=== PATIENT | male | born 1975 | race American Indian/Alaskan Native ===

== ENCOUNTER 2017-04-16 07:53 | Inpatient (IN) | payer MEDICAID ==
[2017-04-16 08:28] VITALS: BMI 25.0
--- NOTE | 2017-04-16 08:31 | ED PDOC ---
Arrival/HPI - General Time Seen by Provider: 04/16/17 08:25 Historian: Patient - History of Present Illness Narrative History of Present Illness (Text): 04/16/17 08:06 A 41 year old male whose past medical history includes, asthma, presents to the emergency department with pleuritic, retrosternal chest discomfort since this morning. The patient describes the pain as sharp and denies it radiating to the back. He denies fevers, chills, headache, dizziness, shortness of breath, dyspnea on exertion, abdominal pain, nausea, vomiting, diarrhea, or any other complaint. Time/Duration: Other (This morning) Symptom Onset: Sudden Symptom Course: Unchanged Activities at Onset: Rest, Light Context: Home Past Medical History - Provider Review Nursing Documentation Reviewed: Yes - Tetanus Immunization Tetanus Immunization: Unknown - Cardiac Hx Cardiac Disorders: No - Pulmonary Hx Respiratory Disorders: Yes Hx Asthma: Yes - Neurological Hx Neurological Disorder: No - HEENT Hx HEENT Disorder: No - Renal Hx Renal Disorder: No - Endocrine/Metabolic Hx Endocrine Disorders: No - Hematological/Oncological Hx Blood Disorders: No - Integumentary Hx Dermatological Disorder: No - Musculoskeletal/Rheumatological Hx Musculoskeletal Disorders: No - Gastrointestinal Hx Gastrointestinal Disorders: No Hx Bowel Surgery: No - Genitourinary/Gynecological Hx Genitourinary Disorders: No - Psychiatric Hx Psychophysiologic Disorder: No Hx Depression: No Hx Emotional Abuse: No Hx Physical Abuse: No Hx Substance Use: No - Suicidal Assessment Feels Threatened In Home Enviroment: No Family/Social History - Physician Review Nursing Documentation Reviewed: Yes Family/Social History: No Known Family HX Smoking Status: Never Smoked Hx Alcohol Use: No Hx Substance Use: No Hx Substance Use Treatment: No Allergies/Home Meds Allergies/Adverse Reactions: Allergies meperidine HCl [From Demerol] Allergy (Verified 04/16/17 08:28) RASH peanut Allergy (Verified 04/16/17 08:28) ANAPHYLAXIS Home Medications: Home Meds Medication Instructions Recorded Confirmed Albuterol HFA [Ventolin HFA 90 2 puff IH Q4H PRN 04/16/17 04/16/17 mcg/actuation (8 g)] Fluticasone/Salmeterol 250/50 1 puff IH DAILY 04/16/17 04/16/17 [Advair Diskus] Physical Exam - Physical Exam Narrative Physical Exam (Text): 04/16/17 08:15 - Review of Systems Constitutional: Normal. absent: Fatigue, Weight Change, Fevers Eyes: Normal ENT: Normal Respiratory: Normal absent: SOB, Cough, Sputum Cardiovascular: (+) Chest discomfort. absent: Palpitations, Syncope Gastrointestinal: Normal absent: Abdominal pain, Diarrhea, Nausea, Vomiting Genitourinary: Normal. absent: Dysuria, Frequency, Hematuria Musculoskeletal: Normal. absent: Arthralgias, Back Pain, Neck Pain Skin: Normal Neurological: Normal absent: Focal Weakness Endocrine: Normal Hemo/Lymphatic: Normal Psychiatric: Normal - Physical exam Patient appears age appropriate, speaking full sentences without difficulty - Systems Exam Head: Present: Atraumatic, Normocephalic Pupils: Present: PERRL Extraocular Muscles: Present: EOMI Conjunctiva: Present: Normal Mouth: Present: Moist Mucous Membranes Neck: Present: Normal Range of Motion. No: MIDLINE TENDERNESS, Paraspinal Tenderness Respiratory/Chest: Present: Clear to Auscultation, Good Air Exchange. No: Respiratory Distress, Accessory Muscle Use, Tachypnic Cardiovascular: Present: Regular Rate and Rhythm, Normal S1, S2, Peripheral Pulses Present. No: Murmurs Abdomen: Present: Normal Bowel Sounds, No: Tenderness, Peritoneal Signs, Rebound, Guarding, Distention Back: Present: Normal Inspection. No: Midline Tenderness, Paraspinal Tenderness Upper Extremity: Present: Normal Inspection. No: Cyanosis, Edema Lower Extremity: Present: Normal Inspection. No: Edema Neurological: Present: GCS=15, Speech Normal, cranial nerves II through XII fully intact with no cerebellar abnormality, neuro-sensory fully intact. No focal neurological deficits. Skin: Present: Warm, Dry, Normal Color. No: Rashes Lymphatic: Present: OX3, NI, NC Psychiatric: Present: Alert, Oriented x 3, Normal Insight, Normal Concentration Vital Signs Temp Pulse Resp BP Pulse Ox 04/16/17 10:02 90 18 126/73 97 04/16/17 08:26 99.5 F 83 18 122/67 98 Temperature: Afebrile Blood Pressure: Normal Pulse: Regular Respiratory Rate: Normal Appearance: Positive for: Well-Appearing, Non-Toxic, Comfortable Pain Distress: None Mental Status: Positive for: Alert and Oriented X 3 Medical Decision Making ED Course and Treatment: 04/16/17 08:21 Impression: A 41 year old male presents to the emergency department with pleuritic, retrosternal chest discomfort since this morning. On exam, no acute findings. Plan: -- EKG -- Angio Chest CT -- Chest X-ray -- Toradol -- Labs -- Reassess and disposition Progress Notes: 04/16/17 08:35 EKG: Ordered, reviewed, and independently interpreted the EKG. Rate : 84 BPM Rhythm : NSR Interpretation : No ST-segment elevations or depressions, no T-wave inversions, normal intervals. Chest X-ray Report Date : 04/16/2017 08:46:53 Dictator : Tania Read V. IMPRESSION: Small patchy ill-defined infiltrate left lateral mid lung zone. Follow-up to resolution recommended. Possible hiatal hernia. CT Chest with contrast (Pulmonary Angiogram) Report Date : 04/16/2017 09:57:40 Dictator : Myron Valdez MD IMPRESSION: Multiple solid lesions or mass like consolidation in both lungs. There is a cavitary lesion in the left lung base with a fluid level consistent with an abscess. No evidence of pulmonary embolus 04/16/17 10:20 BCx and abx ordered pt aware of plan to be admitted into the hospital for further w/u states he has no PMD at [facility] Dr. Robby orourke, awaiting callback 04/16/17 11:06 Dr. Bustamante asked to admit pt to hospitalist. dw Dr. Zapata, accepted admission - Lab Interpretations Lab Results: 04/16/17 08:25 04/16/17 08:25 Lab Results 04/16/17 08:25: Sodium 139, Potassium 4.1, Chloride 101, Carbon Dioxide 30, Anion Gap 12, BUN 17, Creatinine 1.0, Est GFR ( Amer) > 60, Est GFR (Non- Af Amer) > 60, Random Glucose 98, Calcium 9.1, Total Bilirubin 0.5, AST 72 H, ALT 103 H, Alkaline Phosphatase 69, Total Protein 7.6, Albumin 3.9, Globulin 3.8 , Albumin/Globulin Ratio 1.0 L 04/16/17 08:25: PT 11.4, INR 1.06, APTT 29.7, D-Dimer, Quantitative 0.54 H 04/16/17 08:25: WBC 8.5, RBC 4.05, Hgb 11.5 L, Hct 32.4 L, MCV 80.0, MCH 28.4, MCHC 35.5, RDW 14.2, Plt Count 324, MPV 9.2, Gran % 69.3 H, Lymph % (Auto) 21.2 L, [place] % (Auto) 8.6 H, Eos % (Auto) 0.7 L, Baso % (Auto) 0.2, Gran # 5.89, Lymph # 1.8, [place] # 0.7 H, Eos # 0.1, Baso # 0.02 I have reviewed the lab results: Yes - EKG Interpretation Interpreted by ED Physician: Yes Type: 12 lead EKG - Medication Orders Current Medication Orders: Discontinued Medications Azithromycin (Zithromax 500mg In Ns) 500 mg in 250 mls @ 166.667 mls/hr IV STAT STA PRN Reason: Protocol Stop: 04/16/17 10:45 Last Admin: 04/16/17 10:32 Dose: 166.667 mls/hr Clindamycin Phosphate 600 mg/ (Sodium Chloride) 54 mls @ 108 mls/hr IVPB STAT STA PRN Reason: Protocol Stop: 04/16/17 10:44 Ketorolac Tromethamine (Toradol) 30 mg IVP STAT STA Stop: 04/16/17 08:30 Last Admin: 04/16/17 08:36 Dose: 30 mg ED OBSERVATION Date of observation admission: 04/16/17 Time of observation admission: 08:27 - Observation admission statement Patient is being placed in observation because:: Repeat cardiac enzymes. - Goals of Observation Goals of observation are:: Reassess and Disposition. - Scribe Statement The provider has reviewed the documentation as recorded by the Tobin Maddox Provider Scribe Attestation: All medical record entries made by the Scriblorrie were at my direction and personally dictated by me. I have reviewed the chart and agree that the record accurately reflects my personal performance of the history, physical exam, medical decision making, and the department course for this patient. I have also personally directed, reviewed, and agree with the discharge instructions and disposition. Disposition/Present on Arrival - Present on Arrival Any Indicators Present on Arrival: No History of DVT/PE: No History of Uncontrolled Diabetes: No Urinary Catheter: No History Surgical Site Infection Following: None - Disposition Have Diagnosis and Disposition been Completed?: Yes Diagnosis: Lung abscess Disposition: HOSPITALIZED Disposition Time: 08:27 Patient Plan: Admission Condition: FAIR
[2017-04-16 08:39] LABS: BASO # 0.02 K/mm3 (0.0-2.0); BASO % 0.2 % (0.0-3.0); EOS # 0.1 (0.0-0.7); EOS % 0.7 % (1.5-5.0); GRAN # 5.89 (1.4-6.5); GRAN % 69.3 % (50.0-68.0); HEMATOCRIT 32.4 % (42.0-52.0); LYMPH # 1.8 (1.2-3.4); LYMPH % 21.2 % (22.0-35.0); MEAN CORPUSCULAR HEMOGLOBIN 28.4 pg (25.0-35.0); MEAN CORPUSCULAR HGB CONC 35.5 g/dl (31.0-37.0); MEAN PLATELET VOLUME 9.2 fl (7.0-11.0); MONO # 0.7 (0.1-0.6); MONO % 8.6 % (1.0-6.0); RED CELL DISTRIBUTION WIDTH 14.2 % (11.5-14.5); WHITE BLOOD COUNT 8.5 10^3/ul (4.5-11.0)
[2017-04-16 08:48] LABS: ALKALINE PHOSPHATASE 69 U/L (38-133); ALT/SGPT 103 U/L (7-56); AST/SGOT 72 U/L (15-59); BILIRUBIN,TOTAL 0.5 mg/dL (0.2-1.3); BLOOD UREA NITROGEN 17 mg/dL (7-21); CALCIUM 9.1 mg/dL (8.4-10.5); CARBON DIOXIDE 30 mmol/L (21-33); CHLORIDE 101 mmol/L (98-107); GFR AFRICAN-AMERICAN > 60; GLUCOSE,RANDOM 98 mg/dL (70-110); POTASSIUM 4.1 mmol/L (3.6-5.0); SODIUM 139 mmol/L (132-148); TOTAL PROTEIN 7.6 g/dL (5.8-8.3)
--- NOTE | 2017-04-16 08:48 | RAD ---
HISTORY: cough COMPARISON: No prior. FINDINGS: LUNGS: Left mid lung zone patchy infiltrate PLEURA: No significant pleural effusion identified, no pneumothorax apparent. CARDIOVASCULAR: Normal. OSSEOUS STRUCTURES: No significant abnormalities. VISUALIZED UPPER ABDOMEN: Normal. OTHER FINDINGS: Hiatal hernia possible IMPRESSION: Small patchy ill-defined infiltrate left lateral mid lung zone. Follow-up to resolution recommended Possible hiatal hernia
[2017-04-16 08:53] LABS: INR 1.06 (0.93-1.08); PARTIAL THROMBOPLASTIN TIME 29.7 Seconds (23.7-30.8)
[2017-04-16 08:59] LABS: D DIMER 0.54 mg/L FEU (0-0.50)
[2017-04-16] MEDS ORDERED: Azithromycin 500MG/NS 250ml 500 MG/250 ML BAG IV STA (09:16)
[2017-04-16] MEDS ORDERED: Iodixanol 320 MG/ML 100 ML BOTTLE IV ONE (09:31)
--- NOTE | 2017-04-16 09:59 | CT ---
PROCEDURE: CT Chest with contrast (Pulmonary Angiogram) HISTORY: r/o PE COMPARISON: None available. TECHNIQUE: Axial computed tomography images were obtained of the chest in the pulmonary arterial phase of enhancement. Coronal and sagittal reformatted images were created and reviewed. Intravenous contrast dose: 100 cc of Visipaque Radiation dose: Total exam DLP = 401 mGy-cm. This CT exam was performed using one or more of the following dose reduction techniques: Automated exposure control, adjustment of the mA and/or kV according to patient size, and/or use of iterative reconstruction technique. FINDINGS: PULMONARY ARTERIES: Unremarkable. No pulmonary embolism. AORTA: No acute findings. No thoracic aortic aneurysm. LUNGS: There is a cavitary lesion with a fluid level at the left lung base suspicious for a lung abscess. This measures 3.6 cm in diameter. There is a 2.7 cm mass or solid-appearing consolidation in the left upper lobe. There is a 3.2 cm area of consolidation in the superior segment of the left lower lobe. There is a 2.5 cm consolidation or mass in the right upper lobe. PLEURAL SPACES: Unremarkable. No effusion or pneuomothorax. HEART: Unremarkable. No cardiomegaly. No significant pericardial effusion. LYMPH NODES: No lymphadenopathy. BONES, CHEST WALL: Unremarkable. No fracture or destructive lesion OTHER FINDINGS: Unremarkable. IMPRESSION: Multiple solid lesions or masslike consolidation in both lungs. There is a cavitary lesion in the left lung base with a fluid level consistent with an abscess. No evidence of pulmonary embolus
--- NOTE | 2017-04-16 14:03 | CP.PCM.HP ---
History of Present Illness - History of Present Illness History of Present Illness: Patient is a 41 year old male with PMHx of asthma presents to the ED for chest pain. Reports that he was sleeping when he was awoken by 10/10 stabbing L sided chest pain. Pain is constant, stabbing in nature, with no alleviating factors. Denies radiation, worse with deep inspiration. Denies any prior similar episodes. Patient denies any fevers, chills, diaphoresis, cough, nausea, vomiting, palpitations, sob, abdominal pain, urinary symptoms, changes in bowel habit. Patient also denies any recent travel or sick contacts, recent weight loss, recent dental procedures. ED course: Azithromycin x 1 dose, Clindamycin x 1 dose, Toradol 30mg x 1 Allergies: Meperidine, peanuts, shellfish Medical Hx: Asthma (intubated once > 10 years ago) Medications: Advair, albuterol Surgical Hx: Appendectomy Social Hx: Former IV heroin user (quit 3 years ago), denies alcohol, tobacco use ; works for furniture moving [employer] Family Hx: Mother-Asthma Present on Admission - Present on Admission Any Indicators Present on Admission: No History of DVT/PE: No History of Uncontrolled Diabetes: No Urinary Catheter: No Decubitus Ulcer Present: No Review of Systems - Review of Systems All systems: reviewed and no additional remarkable complaints except - Constitutional Constitutional: absent: Chills, Fever, Night Sweats - EENT Eyes: absent: Blurred Vision, Change in Vision Ears: absent: Decreased Hearing Nose/Mouth/Throat: absent: Dental Pain, Mouth Lesions - Cardiovascular Cardiovascular: Chest Pain. absent: Diaphoresis, Dyspnea, Edema, Lightheadedness, Palpitations - Respiratory Respiratory: Pain on Inspiration. absent: Cough, Dyspnea, Wheezing - Gastrointestinal Gastrointestinal: absent: Abdominal Pain, Constipation, Diarrhea, Nausea, Vomiting - Genitourinary Genitourinary: absent: Difficulty Urinating, Dysuria, Hematuria, Urinary Incontinence - Musculoskeletal Musculoskeletal: absent: Abnormal Gait, Back Pain, Limited Range of Motion, Neck Pain, Numbness, Tingling - Neurological Neurological: absent: Dizziness, Focal Weakness, Headaches, Syncope, Tingling, Tremor, Weakness - Psychiatric Psychiatric: absent: Anxiety, Depression Past Patient History - Infectious Disease Hx of Infectious Diseases: None - Tetanus Immunizations Tetanus Immunization: Unknown - Past Social History Smoking Status: Never Smoked - CARDIAC Hx Cardiac Disorders: No - PULMONARY Hx Respiratory Disorders: Yes Hx Asthma: Yes - NEUROLOGICAL Hx Neurological Disorder: No - HEENT Hx HEENT Problems: No - RENAL Hx Chronic Kidney Disease: No - ENDOCRINE/METABOLIC Hx Endocrine Disorders: No - HEMATOLOGICAL/ONCOLOGICAL Hx Blood Disorders: No - INTEGUMENTARY Hx Dermatological Problems: No - MUSCULOSKELETAL/RHEUMATOLOGICAL Hx Musculoskeletal Disorders: No - GASTROINTESTINAL Hx Gastrointestinal Disorders: No Hx Bowel Surgery: No - GENITOURINARY/GYNECOLOGICAL Hx Genitourinary Disorders: No - PSYCHIATRIC Hx Psychophysiologic Disorder: No Hx Depression: No Hx Emotional Abuse: No Hx Physical Abuse: No Hx Substance Use: No - SURGICAL HISTORY Hx Surgeries: No Meds Allergies/Adverse Reactions: Allergies Allergy/AdvReac Type Severity Reaction Status Date / Time meperidine HCl [From Demerol] Allergy RASH Verified 04/16/17 13:15 peanut Allergy ANAPHYLAXIS Verified 04/16/17 13:15 shellfish derived Allergy ANAPHYLAXIS Verified 04/16/17 13:46 Physical Exam - Constitutional Appears: Well, No Acute Distress - Head Exam Head Exam: ATRAUMATIC, NORMAL INSPECTION - Eye Exam Eye Exam: EOMI, Normal appearance Pupil Exam: NORMAL ACCOMODATION - ENT Exam ENT Exam: Mucous Membranes Moist, Normal Oropharynx - Neck Exam Neck exam: Positive for: Full Rom, Normal Inspection. Negative for: Lymphadenopathy, Tenderness, Thyromegaly - Respiratory Exam Respiratory Exam: Decreased Breath Sounds, Rhonchi. absent: Accessory Muscle Use, Chest Wall Tenderness, Wheezes, Respiratory Distress Additional comments: Poor inspiratory effort 2/2 pain - Cardiovascular Exam Cardiovascular Exam: REGULAR RHYTHM, +S1, +S2. absent: Diastolic murmur, Systolic Murmur - GI/Abdominal Exam GI & Abdominal Exam: Normal Bowel Sounds, Soft, Tenderness. absent: Guarding, Rebound, Rigid - Rectal Exam Rectal Exam: Deferred - Extremities Exam Extremities exam: Positive for: normal inspection, pedal pulses present. Negative for: calf tenderness - Back Exam Back exam: NORMAL INSPECTION - Neurological Exam Neurological exam: Alert, CN II-XII Intact, Oriented x3 - Psychiatric Exam Psychiatric exam: Normal Affect, Normal Mood - Skin Skin Exam: Normal Color, Warm Results - Vital Signs Recent Vital Signs: Last Vital Signs Temp 99.2 F 04/16/17 12:14 Pulse 89 04/16/17 12:14 Resp 18 04/16/17 12:14 BP 141/69 04/16/17 12:14 Pulse Ox 98 04/16/17 12:14 - Labs Result Diagrams: 04/16/17 08:25 04/16/17 08:25 Assessment & Plan - Assessment and Plan (Free Text) Assessment: 41 yo male with PMHx of asthma presents with L sided pleuritic chest pain that started last night. D dimer was mildly elevated 0.54. CT chest showing multiple lesions or masslike consolidation in both lungs. There is a cavitary lesion in the L lung base with a fluid level consistent with abscess. Plan: 1. Lung abscess -Stable, afebrile -VSS, no leukocytosis -F/U am labs -HIV, Hep panel, Quantiferon TB test, UDS ordered -F/U blood cx, sputum cx -Received Clindamycin and Azithromycin in the ED -Continue antibiotics: Zosyn -Pulmonology consulted, f/u recommendations -ID consulted, f/u recommendations 2. Asthma -Will continue Advair -Monitor respiratory status 3. Transaminitis -AST/ALT 72/103 -F/U hepatitis panel -Avoid hepatotoxic agents 4. GI/DVT ppx -Protonix -SCDs
[2017-04-16] MEDS ORDERED: Albuterol HFA 90 mcg/actuation (8 g) IH PRN (14:27)
[2017-04-16] MEDS ORDERED: Albuterol 0.083% Inhal Sol (2.5 mg/3 mL) UD IH PRN (14:31)
[2017-04-16] MEDS ORDERED: Pneumococcal 23-Valent Vaccine IM ONE (14:37)
--- NOTE | 2017-04-16 15:38 | CP.PCM.CON ---
History of Present Illness - History of Present Illness History of Present Illness: Infectious Disease Consultation: April 16, 2017 41 yo male with chest pains on the left side stabbing in nature. The patient was woken up by the pain. Imaging studies done show multiple masses in the lung reeves with a left lung cavitary lesion with a fluid level consistent with an abscess. Patient under isolation and being worked up for TB. Cannot rule out malignancy given extent of disease. Samuel cultures and AFB to be sent. Suggest evaluation with Pulmonology and Cardiothoracic (if available). May need Oncology evaluation as well. 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 No fevers, chills, nausea, vomiting, diarrhea, headaches , dizziness, melena, hematuria, hematemesis, hematochezia, depression, anxiety Past Patient History - Infectious Disease Hx of Infectious Diseases: None - Tetanus Immunizations Tetanus Immunization: Unknown - Past Social History Smoking Status: Never Smoked - CARDIAC Hx Cardiac Disorders: No - PULMONARY Hx Respiratory Disorders: Yes Hx Asthma: Yes - NEUROLOGICAL Hx Neurological Disorder: No - HEENT Hx HEENT Problems: No - RENAL Hx Chronic Kidney Disease: No - ENDOCRINE/METABOLIC Hx Endocrine Disorders: No - HEMATOLOGICAL/ONCOLOGICAL Hx Blood Disorders: No - INTEGUMENTARY Hx Dermatological Problems: No - MUSCULOSKELETAL/RHEUMATOLOGICAL Hx Musculoskeletal Disorders: No - GASTROINTESTINAL Hx Gastrointestinal Disorders: No Hx Bowel Surgery: No - GENITOURINARY/GYNECOLOGICAL Hx Genitourinary Disorders: No - PSYCHIATRIC Hx Psychophysiologic Disorder: No Hx Depression: No Hx Emotional Abuse: No Hx Physical Abuse: No Hx Substance Use: No - SURGICAL HISTORY Hx Surgeries: No Meds Allergies/Adverse Reactions: Allergies Allergy/AdvReac Type Severity Reaction Status Date / Time meperidine HCl [From Demerol] Allergy RASH Verified 04/16/17 13:15 peanut Allergy ANAPHYLAXIS Verified 04/16/17 13:15 shellfish derived Allergy ANAPHYLAXIS Verified 04/16/17 13:46 - Medications Medications: Current Medications Albuterol Sulfate (Albuterol 0.083% Inhal Radha (2.5 Mg/3 Ml) Ud) 2.5 mg IH [id number] PRN PRN Reason: sob Arformoterol Tartrate (Brovana) 15 mcg IH [id number] [place] Budesonide (Pulmicort Respules) 0.5 mg IH [id number] S[place] Pantoprazole Sodium (Protonix Ec Tab) 40 mg PO 0600 SUL[place]NA Physical Exam - Constitutional Appears: Non-toxic, No Acute Distress, Chronically Ill - Head Exam Head Exam: ATRAUMATIC, NORMOCEPHALIC - Eye Exam Eye Exam: EOMI, PERRL Pupil Exam: NORMAL ACCOMODATION, PERRL - ENT Exam ENT Exam: Mucous Membranes Moist, Normal External Ear Exam, TM's Normal Bilaterally - Neck Exam Neck exam: Positive for: Full Rom, Normal Inspection - Respiratory Exam Respiratory Exam: Decreased Breath Sounds, Rhonchi Additional comments: poor inspiratory effort. - Cardiovascular Exam Cardiovascular Exam: REGULAR RHYTHM, RRR, +S1, +S2 - GI/Abdominal Exam GI & Abdominal Exam: Normal Bowel Sounds, Soft. absent: Distended, Tenderness - Extremities Exam Extremities exam: Positive for: full ROM, normal inspection - Neurological Exam Neurological exam: Alert, CN II-XII Intact, Oriented x3 - Psychiatric Exam Psychiatric exam: Normal Affect, Normal Mood - Skin Skin Exam: Intact, Normal Color Results - Vital Signs Recent Vital Signs: Last Vital Signs Temp 99.2 F 04/16/17 13:55 Pulse 89 04/16/17 13:55 Resp 18 04/16/17 13:55 BP 141/69 04/16/17 13:55 Pulse Ox 98 04/16/17 12:14 - Labs Result Diagrams: 04/16/17 08:25 04/16/17 08:25 Assessment & Plan - Assessment and Plan (Free Text) Assessment: 41 yo male with extensive lung pathology with left lower lung cavitary lesion with fluid levels highly suggestive of a lung abscess. Would obtain IR evaluation in addition to Pulmonology evalutation. Would perform cancer workup. Samuel cultures. Start on IV antibiotics of Zosyn for now. Try to drain abscess and send samples for evaluation and cultures. Supportive care. Thank you for allowing me to participate in the care of the patient, we will follow with you.
--- NOTE | 2017-04-16 17:09 | CARD ---
APPROVED REPORT EKG Measurement Heart [id number] <Conclusion> Normal sinus rhythm Normal ECG
--- NOTE | 2017-04-16 17:17 | CP.PCM.CON ---
History of Present Illness - History of Present Illness History of Present Illness: 41 y/o M who presented to the hospital with pleuritic chest pain x 1 day. He does not complain of fevers, chills or night sweats. He mentions 10 lb weight loss in the past month . No smoking or Alcohol but does admit to IV heroin use lately and last use 2 days prior. Currently seen asymptomatic sitting in the chair. Review of Systems - Constitutional Constitutional: Fatigue, Malaise, Weight Loss - EENT Eyes: absent: As Per HPI, Blind Spots, Blurred Vision, Change in Vision, Decreased Night Vision, Diplopia, Discharge, Dry Eye, Exophthalmos, Floaters, Irritation, Itchy Eyes, Loss of Peripheral Vision, Pain, Photophobia, Requires Corrective Lenses, Sees Flashes, Spots in Vision, Tunnel Vision, Other Visual Disturbances, Loss of Vision, Other Ears: absent: As Per HPI, Decreased Hearing, Ear Discharge, Ear Pain, Tinnitus, Abnormal Hearing, Disequilibrium, Dizziness, Other Nose/Mouth/Throat: absent: As Per HPI, Epistaxis, Nasal Congestion, Nasal Discharge, Nasal Obstruction, Nasal Trauma, Nose Pain, Post Nasal Drip, Sinus Pain, Sinus Pressure, Bleeding Gums, Change in Voice, Dental Pain, Dry Mouth, Dysphagia, Halitosis, Hoarsness, Lip Swelling, Mouth Lesions, Mouth Pain, Odynophagia, Sore Throat, Throat Swelling, Tongue Swelling, Facial Pain, Neck Pain, Neck Mass, Other - Cardiovascular Cardiovascular: absent: As Per HPI, Acrocyanosis, Chest Pain, Chest Pain at Rest , Chest Pain with Activity, Claudication, Diaphoresis, Dyspnea, Dyspnea on Exertion, Edema, Irregular Heart Rhythm, Pain Radiating to Arm/Neck/Jaw, Leg Edema, Leg Ulcers, Lightheadedness, Orthopnea, Palpitations, Paroxysmal Nocturnal Dyspnea, Pedal Edema, Radiating Pain, Rapid Heart Rate, Slow Heart Rate, Syncope, Other - Respiratory Respiratory: Pain on Inspiration - Gastrointestinal Gastrointestinal: absent: As Per HPI, Abdominal Pain, Belching, Bloating, Change in Bowel Habits, Change in Stool Character, Coffee Ground Emesis, Constipation, Cramping, Diarrhea, Dyspepsia, Dysphagia, Early Satiety, Excessive Flatus, Fecal Incontinence, Heartburn, Hematemesis, Hematochezia, Loose Stools, Melena, Nausea, Odynophagia, Temesmus, Vomiting, Other - Genitourinary Genitourinary: absent: As Per HPI, Change in Urinary Stream, Difficulty Urinating, Dysuria, Flank Pain, Hematuria, Pyuria, Nocturia, Urinary Incontinence, Urinary Frequency, Urinary Hesitance, Urinary Urgency, Voiding Freq/Small Amts, Freq UTI, Hx Renal/Bladder Calculi, Hx /Renal Surgery, Bladder Distension, Other - Reproductive: Male Reproductive:Male: As Per HPI, Prepubesant, Dyspareunia, Genital Lesions, Genital Pruritis, Pelvic Pain, Sexual Dysfunction, Penile Discharge, Genital Odor, Impotence, On ED Medications, Penile Implant, Other - Musculoskeletal Musculoskeletal: absent: As Per HPI, Abnormal Gait, Arthralgias, Atrophy, Back Pain, Deformity, Joint Swelling, Limited Range of Motion, Loss of Height, Muscle Cramps, Muscle Weakness, Myalgias, Neck Pain, Numbness, Radiating Pain into Limb, Stiffness, Tingling, Other - Integumentary Integumentary: absent: As Per HPI, Acne, Alopecia, Bleeding Lesions, Change in Hair, Change in Nails, Change in Pigmentation, Changing Lesions, Dry Skin, Erythema, Furuncle, Hirsutism, Lesions, New Lesions, Non-Healing Lesions, Photosensitivity, Pruritus, Rash, Skin Pain, Skin Ulcer, Sores, Striae, Swelling , Unusual Bruising, Wounds, Jaundice, Other Past Patient History - Infectious Disease Hx of Infectious Diseases: None - Tetanus Immunizations Tetanus Immunization: Unknown - Past Social History Smoking Status: Never Smoked Drugs: Other (iv heroin use) - CARDIAC Hx Cardiac Disorders: No - PULMONARY Hx Respiratory Disorders: Yes Hx Asthma: Yes - NEUROLOGICAL Hx Neurological Disorder: No - HEENT Hx HEENT Problems: No - RENAL Hx Chronic Kidney Disease: No - ENDOCRINE/METABOLIC Hx Endocrine Disorders: No - HEMATOLOGICAL/ONCOLOGICAL Hx Blood Disorders: No - INTEGUMENTARY Hx Dermatological Problems: No - MUSCULOSKELETAL/RHEUMATOLOGICAL Hx Musculoskeletal Disorders: No - GASTROINTESTINAL Hx Gastrointestinal Disorders: No Hx Bowel Surgery: No - GENITOURINARY/GYNECOLOGICAL Hx Genitourinary Disorders: No - PSYCHIATRIC Hx Psychophysiologic Disorder: No Hx Depression: No Hx Emotional Abuse: No Hx Physical Abuse: No Hx Substance Use: No - SURGICAL HISTORY Hx Surgeries: No Meds Allergies/Adverse Reactions: Allergies Allergy/AdvReac Type Severity Reaction Status Date / Time meperidine HCl [From Demerol] Allergy RASH Verified 04/16/17 13:15 peanut Allergy ANAPHYLAXIS Verified 04/16/17 13:15 shellfish derived Allergy ANAPHYLAXIS Verified 04/16/17 13:46 - Medications Medications: Current Medications Albuterol Sulfate (Albuterol 0.083% Inhal Radha (2.5 Mg/3 Ml) Ud) 2.5 mg IH [id number] PRN PRN Reason: sob Arformoterol Tartrate (Brovana) 15 mcg IH [id number] [facility] Budesonide (Pulmicort Respules) 0.5 mg IH [id number] [facility] Piperacillin Sod/Tazobactam Sod (Zosyn 4.5 Gm In Ns 100ml) 4.5 gm in 100 mls @ 200 mls/hr IVPB Q6 [facility] PRN Reason: Protocol Vancomycin HCl (Vancomycin 1gm) 1 gm in 250 mls @ 167 mls/hr IVPB DAILY SULTANA PRN Reason: Protocol Pantoprazole Sodium (Protonix Ec Tab) 40 mg PO 0600 [facility] Physical Exam - Head Exam Head Exam: ATRAUMATIC, NORMAL INSPECTION - Eye Exam Eye Exam: EOMI, Normal appearance Pupil Exam: NORMAL ACCOMODATION, PERRL - ENT Exam ENT Exam: Mucous Membranes Moist - Neck Exam Neck exam: Positive for: Normal Inspection - Respiratory Exam Respiratory Exam: Clear to Auscultation Bilateral, NORMAL BREATHING PATTERN - Cardiovascular Exam Cardiovascular Exam: REGULAR RHYTHM - GI/Abdominal Exam GI & Abdominal Exam: Normal Bowel Sounds - Exam Exam: NORMAL INSPECTION - Extremities Exam Extremities exam: Positive for: normal inspection - Back Exam Back exam: NORMAL INSPECTION - Neurological Exam Neurological exam: Normal Gait, Oriented x3 - Psychiatric Exam Psychiatric exam: Normal Affect, Normal Mood Results - Vital Signs Recent Vital Signs: Last Vital Signs Temp 99.2 F 04/16/17 16:00 Pulse 80 04/16/17 16:00 Resp 18 04/16/17 16:00 BP 124/74 04/16/17 16:00 Pulse Ox 97 04/16/17 16:00 - Labs Result Diagrams: 04/16/17 08:25 04/16/17 08:25 Labs: Laboratory Results - last 24 hr 04/16/17 15:30 Troponin I < 0.01 Assessment & Plan - Assessment and Plan (Free Text) Assessment: 41 y/o M with a history of Mild intermittent Asthma on Advair daily and PRn albuterol who presented with Pleuritic chest pain. CXR and Chest Ct images were reviewed by me which showed multiple nodular infiltrated in the periphery with LLL lung abscess. The finding of the nodular lung infiltrates suggest infectious causes and with the patient's history can suggest septic emboli. Would need TTE and LENA urgently. Blood cx, Sputum cx and may need bronchoscopy in the next 24-36 hrs if new fevers or worsening situation. With the findings of the LLL lung abscess, drainage would not be reccomended in guidelines and would be a risk for further sepsis and dissemination. Would continue with IV abx Zosyn and Vancomycin for 2 weeks and would then have a repeat CT chest to evaluate the infiltrates and if they remain would decide if there is a need for tissue sample via biopsy by IR. HIV, Hepatitis panel sent to r/o immunocompromised state . DVT P We will follow along
[2017-04-16] MEDS: Piperacill/Tazo 4.5gm in NS 4.5 GM/100 ML BAG IVPB SCH (17:36)
[2017-04-16] MEDS: Vancomycin 1gm in NS 250ml 1 GM/250 ML BAG IVPB SCH (18:24)
[2017-04-16] MEDS: Arformoterol 15 mcg/2 ml Inh Sol IH SCH (20:01)
[2017-04-16] MEDS: Budesonide 0.5 mg/2 ml Inhal Susp UD IH SCH (20:01)
[2017-04-17] MEDS: Piperacill/Tazo 4.5gm in NS 4.5 GM/100 ML BAG IVPB SCH ×4 (00:17→18:13)
[2017-04-17] MEDS ORDERED: Pantoprazole 40 mg EC Tab PO SCH (06:00)
[2017-04-17] MEDS: Arformoterol 15 mcg/2 ml Inh Sol IH SCH ×2 (07:18→20:21)
[2017-04-17] MEDS: Budesonide 0.5 mg/2 ml Inhal Susp UD IH SCH ×2 (07:18→20:21)
[2017-04-17 07:38] LABS: BASO # 0.02 K/mm3 (0.0-2.0); BASO % 0.2 % (0.0-3.0); EOS # 0.1 (0.0-0.7); GRAN # 5.6 (1.4-6.5); GRAN % 64.3 % (50.0-68.0); HEMATOCRIT 33.1 % (42.0-52.0); LYMPH % 22.7 % (22.0-35.0); MEAN CELL VOLUME 79.4 fl (80.0-105.0); MEAN CORPUSCULAR HEMOGLOBIN 27.6 pg (25.0-35.0); MEAN CORPUSCULAR HGB CONC 34.7 g/dl (31.0-37.0); MEAN PLATELET VOLUME 9.8 fl (7.0-11.0); MONO % 11.8 % (1.0-6.0); RED CELL DISTRIBUTION WIDTH 14.2 % (11.5-14.5); WHITE BLOOD COUNT 8.7 10^3/ul (4.5-11.0)
[2017-04-17 07:47] LABS: ALKALINE PHOSPHATASE 68 U/L (38-133); ALT/SGPT 111 U/L (7-56); AST/SGOT 85 U/L (15-59); BILIRUBIN,TOTAL 0.5 mg/dL (0.2-1.3); BLOOD UREA NITROGEN 15 mg/dL (7-21); CALCIUM 9.2 mg/dL (8.4-10.5); CARBON DIOXIDE 29 mmol/L (21-33); CHLORIDE 102 mmol/L (98-107); GFR AFRICAN-AMERICAN > 60; GLUCOSE,RANDOM 100 mg/dL (70-110); MAGNESIUM 1.9 mg/dL (1.7-2.2); PHOSPHOROUS 3.9 mg/dL (2.5-4.5); POTASSIUM 4.2 mmol/L (3.6-5.0); SODIUM 140 mmol/L (132-148); TOTAL PROTEIN 7.5 g/dL (5.8-8.3)
[2017-04-17 08:02] LABS: TROPONIN I < 0.01 ng/mL
[2017-04-17] MEDS: Vancomycin 1gm in NS 250ml 1 GM/250 ML BAG IVPB SCH (09:39)
[2017-04-17] MEDS ORDERED: Fluticasone-Salmeterol 250-50mcg Diskus IH SCH (10:00)
--- NOTE | 2017-04-17 14:15 | CP.PCM.PN ---
<Vicky Ashford - Last Filed: 04/17/17 14:21> Subjective - Date & Time of Evaluation Date of Evaluation: 04/17/17 Time of Evaluation: 07:15 - Subjective Subjective: Vicky Ashford DO, PGY-1, Internal Medicine, Hospitalist Service Patient seen and examined at bedside. Per nursing, no acute events overnight. Patient is doing well, offers no complaints at this time. Pain improving. Ambulating and tolerating diet. Denies headache, dizziness, cough, palpitations , shortness of breath, abdominal pain, urinary symptoms, changes in bowel habits. Objective - Vital Signs/Intake and Output Vital Signs (last 24 hours): Temp Pulse Resp BP Pulse Ox 98.1 F 71 18 118/45 L 97 04/17/17 07:00 04/17/17 07:00 04/17/17 07:00 04/17/17 07:00 04/17/17 07:00 Intake and Output: 04/17/17 04/17/17 06:59 18:59 Intake Total 720 Balance 720 - Medications Medications: Current Medications Albuterol Sulfate (Albuterol 0.083% Inhal Radha (2.5 Mg/3 Ml) Ud) 2.5 mg IH [id number] PRN PRN Reason: sob Arformoterol Tartrate (Brovana) 15 mcg IH [id number] [facility] Last Admin: 04/17/17 07:18 Dose: 15 mcg Budesonide (Pulmicort Respules) 0.5 mg IH [id number] [facility] Last Admin: 04/17/17 07:18 Dose: 0.5 mg Piperacillin Sod/Tazobactam Sod (Zosyn 4.5 Gm In Ns 100ml) 4.5 gm in 100 mls @ 200 mls/hr IVPB Q6 [facility] PRN Reason: Protocol Last Admin: 04/17/17 12:46 Dose: 200 mls/hr Vancomycin HCl (Vancomycin 1gm) 1 gm in 250 mls @ 167 mls/hr IVPB DAILY [facility] PRN Reason: Protocol Last Admin: 04/17/17 09:39 Dose: 167 mls/hr Pantoprazole Sodium (Protonix Ec Tab) 40 mg PO 0600 [facility] Last Admin: 04/17/17 09:39 Dose: 40 mg - Labs Labs: 04/17/17 07:00 04/17/17 07:00 PT 11.4 Seconds (9.9-11.8) 04/16/17 08:25 INR 1.06 (0.93-1.08) 04/16/17 08:25 APTT 29.7 Seconds (23.7-30.8) 04/16/17 08:25 - Constitutional Appears: Well, No Acute Distress - Head Exam Head Exam: ATRAUMATIC, NORMAL INSPECTION - Eye Exam Eye Exam: EOMI, Normal appearance Pupil Exam: NORMAL ACCOMODATION - ENT Exam ENT Exam: Mucous Membranes Moist - Neck Exam Neck Exam: Full ROM - Respiratory Exam Respiratory Exam: Decreased Breath Sounds, Clear to Ausculation Bilateral, NORMAL BREATHING PATTERN. absent: Rales, Rhonchi, Wheezes - Cardiovascular Exam Cardiovascular Exam: REGULAR RHYTHM, +S1, +S2 - GI/Abdominal Exam GI & Abdominal Exam: Soft, Normal Bowel Sounds. absent: Guarding, Rigid, Tenderness - Extremities Exam Extremities Exam: Full ROM, Normal Inspection - Back Exam Back Exam: NORMAL INSPECTION - Neurological Exam Neurological Exam: Alert, Awake, Normal Gait, Oriented x3 - Psychiatric Exam Psychiatric exam: Normal Affect, Normal Mood - Skin Skin Exam: Dry, Normal Color, Warm Assessment and Plan - Assessment and Plan (Free Text) Assessment: 41 yo male with PMHx of asthma presents with L sided pleuritic chest pain that started last night. D dimer was mildly elevated 0.54. CT chest showing multiple lesions or masslike consolidation in both lungs. There is a cavitary lesion in the L lung base with a fluid level consistent with abscess. Plan: 1. Lung abscess -Stable, afebrile -VSS, no leukocytosis -F/U am labs -Troponins negative x 3 -HIV, Hepatitis panel negative -UDS + opiates -Patient on airborne precautions as TB is on differential -F/U quantiferon gold -F/U blood cx, sputum cx -Received Clindamycin and Azithromycin in the ED -Continue antibiotics: Zosyn and Vancomycin (day 2) -Pulmonology consulted, f/u recommendations -ID consulted, f/u recommendations 2. Asthma -Will continue pulmicort and brovana -Albuterol prn -Monitor respiratory status 3. Transaminitis -AST/ALT 85/111 -Hepatitis panel negative -Avoid hepatotoxic agents -Continue to monitor 4. GI/DVT ppx -Protonix -SCDs <Joel Mabry - Last Filed: 04/18/17 15:38> Objective - Vital Signs/Intake and Output Vital Signs (last 24 hours): Temp Pulse Resp BP Pulse Ox 97.8 F 71 22 128/68 99 04/18/17 08:42 04/18/17 08:42 04/18/17 08:42 04/17/17 23:00 04/18/17 08:42 Intake and Output: 04/18/17 04/18/17 06:59 18:59 Intake Total 720 Balance 720 - Labs Labs: 04/18/17 06:40 04/18/17 06:40 PT 11.4 Seconds (9.9-11.8) 04/16/17 08:25 INR 1.06 (0.93-1.08) 04/16/17 08:25 APTT 29.7 Seconds (23.7-30.8) 04/16/17 08:25 Attending/Attestation - Attestation I have personally seen and examined this patient.: Yes I have fully participated in the care of the patient.: Yes I have reviewed all pertinent clinical information, including history, physical exam and plan: Yes Notes (Text): I have seen and examined the patient at bedside. Agree with the above note with the following additions/ exceptions: Briefly this is 41 year old male with history of IV drug abuse, asthma who presented with left sided pleuritic chest pain and found to have lung abscess. Patient denies any complaints including cough, chest pain, hemoptysis, phlegm production or any other complaints. Patient is not immunocompromised. HIV and hep is negative. He is on airborne precautions. TB quantiferon pending. Continue zosyn and vanco. Continue pulmicort and brovana for asthma. Patient has transaminitis. Hep panel is negative. Recommend Hepatic ultrasound as an outpatient. Upon discharge patient will follow up with Dr Lashaun Xavier. Dr Joel Mabry.
--- NOTE | 2017-04-17 19:31 | CP.PCM.PN ---
Subjective - Date & Time of Evaluation Date of Evaluation: 04/17/17 Time of Evaluation: 17:45 - Subjective Subjective: Infectious Disease Follow Up: April 17, 2017 41 yo male with chest pains on the left side stabbing in nature. The patient was woken up by the pain. Imaging studies done show multiple masses in the lung reeves with a left lung cavitary lesion with a fluid level consistent with an abscess. Patient under isolation and being worked up for TB. Cannot rule out malignancy given extent of disease. Samuel cultures and AFB to be sent. Evaluated by Pulmonology. Blood cultures to date have been negative. Clinically patient is not in much distress. Objective - Vital Signs/Intake and Output Vital Signs (last 24 hours): Temp Pulse Resp BP Pulse Ox 98 F 66 20 125/86 99 04/17/17 16:00 04/17/17 16:00 04/17/17 16:00 04/17/17 16:00 04/17/17 16:00 Intake and Output: 04/17/17 04/18/17 18:59 06:59 Intake Total 480 Balance 480 - Medications Medications: Current Medications Albuterol Sulfate (Albuterol 0.083% Inhal Radha (2.5 Mg/3 Ml) Ud) 2.5 mg IH [id number] PRN PRN Reason: sob Arformoterol Tartrate (Brovana) 15 mcg IH [id number] [facility] Last Admin: 04/17/17 07:18 Dose: 15 mcg Budesonide (Pulmicort Respules) 0.5 mg IH [id number] [facility] Last Admin: 04/17/17 07:18 Dose: 0.5 mg Piperacillin Sod/Tazobactam Sod (Zosyn 4.5 Gm In Ns 100ml) 4.5 gm in 100 mls @ 200 mls/hr IVPB Q6 [facility] PRN Reason: Protocol Last Admin: 04/17/17 18:13 Dose: 200 mls/hr Vancomycin HCl (Vancomycin 1gm) 1 gm in 250 mls @ 167 mls/hr IVPB DAILY [facility] PRN Reason: Protocol Last Admin: 04/17/17 09:39 Dose: 167 mls/hr Pantoprazole Sodium (Protonix Ec Tab) 40 mg PO 0600 [facility] Last Admin: 04/17/17 09:39 Dose: 40 mg - Labs Labs: 04/17/17 07:00 04/17/17 07:00 PT 11.4 Seconds (9.9-11.8) 04/16/17 08:25 INR 1.06 (0.93-1.08) 04/16/17 08:25 APTT 29.7 Seconds (23.7-30.8) 04/16/17 08:25 - Constitutional Appears: Non-toxic, No Acute Distress, Chronically Ill - Head Exam Head Exam: ATRAUMATIC, NORMOCEPHALIC - Eye Exam Eye Exam: EOMI, PERRL Pupil Exam: NORMAL ACCOMODATION, PERRL - ENT Exam ENT Exam: Mucous Membranes Moist, Normal External Ear Exam, TM's Normal Bilaterally - Neck Exam Neck Exam: Full ROM, Normal Inspection - Respiratory Exam Respiratory Exam: Chest Wall Tenderness, Clear to Ausculation Bilateral, Respiratory Distress. absent: Rales, Rhonchi, Wheezes - Cardiovascular Exam Cardiovascular Exam: REGULAR RHYTHM, RRR, +S1, +S2 - GI/Abdominal Exam GI & Abdominal Exam: Soft, Normal Bowel Sounds. absent: Distended, Tenderness - Extremities Exam Extremities Exam: Full ROM, Normal Inspection - Back Exam Back Exam: NORMAL INSPECTION - Neurological Exam Neurological Exam: Alert, Awake, CN II-XII Intact, Oriented x3 - Psychiatric Exam Psychiatric exam: Normal Affect, Normal Mood - Skin Skin Exam: Intact, Normal Color Assessment and Plan - Assessment and Plan (Free Text) Assessment: 41 yo male with extensive lung pathology with left lower lung cavitary lesion with fluid levels highly suggestive of a lung abscess. Would obtain IR evaluation in addition to Pulmonology evalutation. Samuel cultures. Start on IV antibiotics of Zosyn for now. Most likely abscess and septic emboli. Supportive care. Cultures negative to date. Thank you for allowing me to participate in the care of the patient, we will follow with you.
--- NOTE | 2017-04-17 19:46 | CARD ---
APPROVED REPORT EXAM: Two-dimensional and M-mode echocardiogram with Doppler and color Doppler. INDICATION Infection:Rule out subacute bacterial endocarditis Thrombus 2D DIMENSIONS Left Atrium (2D)4.0 (1.6-4.0cm)IVSd1.0 (0.7-1.1cm) LVDd4.9 (3.9-5.9cm)PWd1.1 (0.7-1.1cm) LVDs3.1 (2.5-4.0cm)FS (%) 36.9 % LVEF (%)66.7 (>50%) M-Mode DIMENSIONS Aortic Root2.70 (2.2-3.7cm)Aortic Cusp Exc.1.90 (1.5-2.0cm) Aortic Valve AoV Peak Qzjerwtv582.0cm/Samara Peak GR.9mmHg Mitral Valve MV E Kxklajga54.3cm/sMV A [place]68.3cm/sE/A ratio1.2 TDI E/Lateral E'0.0E/Medial E'0.0 Tricuspid Valve TR Peak [id number]/sRAP [id number] Peak Gr.25mmHg [id number] LEFT VENTRICLE The left ventricle is normal size. There is normal left ventricular wall thickness. The left ventricular function is normal. The left ventricular ejection fraction is within the normal range. There is normal LV segmental wall motion. The left ventricular diastolic function is normal. RIGHT VENTRICLE The right ventricle is normal size. There is normal right ventricular wall thickness. The right ventricular systolic function is normal. ATRIA The left atrium size is normal. The right atrium size is normal. AORTIC VALVE The aortic valve is normal in structure. No aortic regurgitation is present. MITRAL VALVE The mitral valve is mildly thickened. There is no mitral valve regurgitation noted. There is no mitral valve stenosis. TRICUSPID VALVE There is mild pulmonary hypertension. GREAT VESSELS The aortic root is normal in size. The IVC is normal in size and collapses >50% with inspiration. PERICARDIAL EFFUSION There is no pericardial effusion. <Conclusion> The left ventricle is normal size. There is normal left ventricular wall thickness. The left ventricular function is normal. The left ventricular ejection fraction is within the normal range. There is normal LV segmental wall motion. The left ventricular diastolic function is normal. There is mild pulmonary hypertension. No valvular vegitation seen
[2017-04-18] MEDS: Piperacill/Tazo 4.5gm in NS 4.5 GM/100 ML BAG IVPB SCH ×3 (00:12→13:26)
[2017-04-18 00:41] VITALS: BP 128/68; TEMP 97.8
[2017-04-18 07:13] LABS: BASO # 0.03 K/mm3 (0.0-2.0); BASO % 0.4 % (0.0-3.0); EOS # 0.2 (0.0-0.7); EOS % 2.5 % (1.5-5.0); GRAN # 3.76 (1.4-6.5); GRAN % 55.8 % (50.0-68.0); HEMATOCRIT 32.9 % (42.0-52.0); LYMPH # 2.1 (1.2-3.4); LYMPH % 31.1 % (22.0-35.0); MEAN CELL VOLUME 79.3 fl (80.0-105.0); MEAN CORPUSCULAR HEMOGLOBIN 27.7 pg (25.0-35.0); MEAN PLATELET VOLUME 9.3 fl (7.0-11.0); MONO # 0.7 (0.1-0.6); MONO % 10.2 % (1.0-6.0); RED CELL DISTRIBUTION WIDTH 14.3 % (11.5-14.5); WHITE BLOOD COUNT 6.8 10^3/ul (4.5-11.0)
[2017-04-18 07:17] LABS: ALKALINE PHOSPHATASE 61 U/L (38-133); ALT/SGPT 100 U/L (7-56); AST/SGOT 74 U/L (15-59); BILIRUBIN,TOTAL 0.5 mg/dL (0.2-1.3); BLOOD UREA NITROGEN 12 mg/dL (7-21); CALCIUM 9.2 mg/dL (8.4-10.5); CARBON DIOXIDE 31 mmol/L (21-33); CHLORIDE 103 mmol/L (98-107); GFR AFRICAN-AMERICAN > 60; GLUCOSE,RANDOM 105 mg/dL (70-110); MAGNESIUM 1.9 mg/dL (1.7-2.2); PHOSPHOROUS 4.6 mg/dL (2.5-4.5); POTASSIUM 4.3 mmol/L (3.6-5.0); SODIUM 144 mmol/L (132-148); TOTAL PROTEIN 7.3 g/dL (5.8-8.3)
[2017-04-18] MEDS: Arformoterol 15 mcg/2 ml Inh Sol IH SCH (07:48)
[2017-04-18 08:42] VITALS: PULSE 71; RESP 22; O2SAT 99
[2017-04-18] MEDS: Vancomycin 1gm in NS 250ml 1 GM/250 ML BAG IVPB SCH (10:51)
--- NOTE | 2017-04-18 13:46 | CP.PCM.DIS ---
<Vicky Ashford - Last Filed: 04/18/17 15:15> Provider - Provider Date of Admission: 04/16/17 11:08 Attending physician: Joel Mabry MD Consults: Pulm: Dr Mabry Cardiology: Dr Le ID: Dr Moraes Time Spent in preparation of Discharge (in minutes): 35 Hospital Course - Lab Results Lab Results: Most Recent Lab Values WBC 6.8 10^3/ul (4.5-11.0) D 04/18/17 06:40 RBC 4.15 10^6/uL (3.5-6.1) 04/18/17 06:40 Hgb 11.5 g/dL (14.0-18.0) L 04/18/17 06:40 Hct 32.9 % (42.0-52.0) L 04/18/17 06:40 MCV 79.3 fl (80.0-105.0) L 04/18/17 06:40 MCH 27.7 pg (25.0-35.0) 04/18/17 06:40 MCHC 35.0 g/dl (31.0-37.0) 04/18/17 06:40 RDW 14.3 % (11.5-14.5) 04/18/17 06:40 Plt Count 334 10^3/uL (120.0-450.0) 04/18/17 06:40 MPV 9.3 fl (7.0-11.0) 04/18/17 06:40 Gran % 55.8 % (50.0-68.0) 04/18/17 06:40 Lymph % (Auto) 31.1 % (22.0-35.0) 04/18/17 06:40 [place] % (Auto) 10.2 % (1.0-6.0) H 04/18/17 06:40 Eos % (Auto) 2.5 % (1.5-5.0) 04/18/17 06:40 Baso % (Auto) 0.4 % (0.0-3.0) 04/18/17 06:40 Gran # 3.76 (1.4-6.5) 04/18/17 06:40 Lymph # 2.1 (1.2-3.4) 04/18/17 06:40 [place] # 0.7 (0.1-0.6) H 04/18/17 06:40 Eos # 0.2 (0.0-0.7) 04/18/17 06:40 Baso # 0.03 K/mm3 (0.0-2.0) 04/18/17 06:40 PT 11.4 Seconds (9.9-11.8) 04/16/17 08:25 INR 1.06 (0.93-1.08) 04/16/17 08:25 APTT 29.7 Seconds (23.7-30.8) 04/16/17 08:25 D-Dimer, Quantitative 0.54 mg/L FEU (0-0.50) H 04/16/17 08:25 Sodium 144 mmol/L (132-148) 04/18/17 06:40 Potassium 4.3 mmol/L (3.6-5.0) 04/18/17 06:40 Chloride 103 mmol/L (98-107) 04/18/17 06:40 Carbon Dioxide 31 mmol/L (21-33) 04/18/17 06:40 Anion Gap 14 (10-20) 04/18/17 06:40 BUN 12 mg/dL (7-21) 04/18/17 06:40 Creatinine 1.1 mg/dL (0.5-1.4) 04/18/17 06:40 Est GFR ( Amer) > 60 04/18/17 06:40 Est GFR (Non-Af Amer) > 60 04/18/17 06:40 Random Glucose 105 mg/dL (70-110) 04/18/17 06:40 Calcium 9.2 mg/dL (8.4-10.5) 04/18/17 06:40 Phosphorus 4.6 mg/dL (2.5-4.5) H 04/18/17 06:40 Magnesium 1.9 mg/dL (1.7-2.2) 04/18/17 06:40 Total Bilirubin 0.5 mg/dL (0.2-1.3) 04/18/17 06:40 AST 74 U/L (15-59) H 04/18/17 06:40 ALT 100 U/L (7-56) H 04/18/17 06:40 Alkaline Phosphatase 61 U/L (38-133) 04/18/17 06:40 Troponin I < 0.01 ng/mL 04/17/17 07:00 Total Protein 7.3 g/dL (5.8-8.3) 04/18/17 06:40 Albumin 3.7 g/dL (3.0-4.8) 04/18/17 06:40 Globulin 3.6 gm/dL 04/18/17 06:40 Albumin/Globulin Ratio 1.0 (1.1-1.8) L 04/18/17 06:40 Urine Opiates Screen Positive (NEGATIVE) H 04/16/17 17:45 Urine Methadone Screen Negative (NEGATIVE) 04/16/17 17:45 Ur Barbiturates Screen Negative (NEGATIVE) 04/16/17 17:45 Ur Phencyclidine Scrn Negative (NEGATIVE) 04/16/17 17:45 Ur Amphetamines Screen Negative (NEGATIVE) 04/16/17 17:45 U Benzodiazepines Scrn Negative (NEGATIVE) 04/16/17 17:45 U Oth Cocaine Metabols Negative (NEGATIVE) 04/16/17 17:45 U Cannabinoids Screen Negative (NEGATIVE) 04/16/17 17:45 Hepatitis A IgM Ab Negative (NEGATIVE) 04/16/17 15:30 Hep Bs Antigen Negative (NEGATIVE) 04/16/17 15:30 Hep B Core IgM Ab Negative (NEGATIVE) 04/16/17 15:30 Hepatitis C Antibody Negative (NEGATIVE) 04/16/17 15:30 HIV 1&2 Ag/Ab, 4th Gen Nonreactive (Nonreactive) 04/16/17 15:30 TB Test (QFT) Nil 0.05 IU/mL 04/16/17 15:30 TB Test Mitogen - Nil 5.24 IU/mL 04/16/17 15:30 TB Test TB - Nil <0.00 IU/mL 04/16/17 15:30 TB Test (QFT) Negative (Negative) 04/16/17 15:30 - Hospital Course Hospital Course: Patient is a 41 year old male with PMHx of asthma presents to the ED for L sided pleuritic chest pain. Reports that he was sleeping when he was awoken by 10/10 stabbing L sided chest pain. Pain is constant, stabbing in nature, with no alleviating factors. Denies radiation, worse with deep inspiration. Denies any prior similar episodes. Patient denies any fevers, chills, diaphoresis, cough, nausea, vomiting, palpitations, sob, abdominal pain, urinary symptoms, changes in bowel habit. Patient also denies any recent travel or sick contacts, recent dental procedures. In the ED, EKG was NSR. D dimer was found to be elevated 0.54. CT chest showing multiple lesions or mass like consolidation in both lungs. There is a cavitary lesion in the L lung base with a fluid level consistent with abscess. ID was consulted, started the patient on Vanco and zosyn for broad coverage. Pulmonary was also consulted, recommending continuing antibiotic treatment. Per pulmonary , drainage would not be recommended in guidelines and would be a risk for further sepsis and dissemination. Cardiology was consulted to r/o vegetations, echo was ordered and was normal. During hospital stay patient remained afebrile , no leukocytosis was noted. Blood cx were negative. Troponins were negative x 3. HIV and Quantiferon Gold test ordered to rule out immunocompromised state. Patient was placed on airborne isolation. Both HIV and TB were negative. Isolation was subsequently discontinued. Patient was found to have elevated LFTs on arrival, hepatitis panel was noted to be negative. UDS was positive for opiates. On day of discharge, patient was doing well. Denied any pain. Was ambulating and tolerating diet. Patient was cleared by ID and Pulmonology. Patient was medically stable prior to discharge. Patient given prescriptions for Bactrim 1 tab PO daily and Keflex 500mg TID x 14 days. Patient was also given a prescription for CT chest with contrast to be performed 05/17/17. Patient was counseled extensively on IV heroin cessation as lung abscess likely septic emboli 2/2 IV drug use. All questions and concerns were addressed. Patient to follow up with PMD and Pulmonology within 1 week. Discharge Exam - Head Exam Head Exam: ATRAUMATIC, NORMOCEPHALIC - Eye Exam Eye Exam: EOMI, Normal appearance Pupil Exam: NORMAL ACCOMODATION, PERRL - ENT Exam ENT Exam: Mucous Membranes Moist - Neck Exam Neck exam: Full Rom - Respiratory Exam Respiratory Exam: Clear to PA & Lateral, NORMAL BREATHING PATTERN. absent: Rales, Rhonchi, Wheezes, Respiratory Distress - Cardiovascular Exam Cardiovascular Exam: REGULAR RHYTHM, +S1, +S2 - GI/Abdominal Exam GI & Abdominal Exam: Normal Bowel Sounds, Soft. absent: Guarding, Rebound, Rigid, Tenderness - Rectal Exam Rectal Exam: Deferred - Extremities Exam Extremities exam: calf tenderness, normal inspection, pedal pulses present - Back Exam Back exam: NORMAL INSPECTION - Neurological Exam Neurological exam: Alert, Normal Gait, Oriented x3 - Psychiatric Exam Psychiatric exam: Normal Affect, Normal Mood - Skin Skin Exam: Dry, Normal Color, Warm Discharge Plan - Discharge Medications Prescriptions: Cephalexin [cephalexin] 500 mg PO TID #42 cap Sulfamethoxazole/Trimethoprim [Bactrim 400-80 mg Tablet] 1 each PO DAILY #14 tablet - Follow Up Plan Condition: FAIR Disposition: HOME/ ROUTINE Instructions: Lung Abscess (DC) Additional Instructions: Patient is clear for discharge home. Patient to continue Bactrim 1 tab PO daily x 14 days, Keflex 500mg TID x 14 days. Patient will also need repeat Chest CT in 1 month (05/17/17). Patient to follow up with PMD and pulmonary within 1 week. Encouraged to stop IV heroin use as this may have contributed to lung abscess formation. <Joel Mabry - Last Filed: 04/18/17 17:22> Provider - Provider Date of Admission: 04/16/17 11:08 Attending physician: Joel Mabry MD Hospital Course - Lab Results Lab Results: Most Recent Lab Values WBC 6.8 10^3/ul (4.5-11.0) D 04/18/17 06:40 RBC 4.15 10^6/uL (3.5-6.1) 04/18/17 06:40 Hgb 11.5 g/dL (14.0-18.0) L 04/18/17 06:40 Hct 32.9 % (42.0-52.0) L 04/18/17 06:40 MCV 79.3 fl (80.0-105.0) L 04/18/17 06:40 MCH 27.7 pg (25.0-35.0) 04/18/17 06:40 MCHC 35.0 g/dl (31.0-37.0) 04/18/17 06:40 RDW 14.3 % (11.5-14.5) 04/18/17 06:40 Plt Count 334 10^3/uL (120.0-450.0) 04/18/17 06:40 MPV 9.3 fl (7.0-11.0) 04/18/17 06:40 Gran % 55.8 % (50.0-68.0) 04/18/17 06:40 Lymph % (Auto) 31.1 % (22.0-35.0) 04/18/17 06:40 [place] % (Auto) 10.2 % (1.0-6.0) H 04/18/17 06:40 Eos % (Auto) 2.5 % (1.5-5.0) 04/18/17 06:40 Baso % (Auto) 0.4 % (0.0-3.0) 04/18/17 06:40 Gran # 3.76 (1.4-6.5) 04/18/17 06:40 Lymph # 2.1 (1.2-3.4) 04/18/17 06:40 [place] # 0.7 (0.1-0.6) H 04/18/17 06:40 Eos # 0.2 (0.0-0.7) 04/18/17 06:40 Baso # 0.03 K/mm3 (0.0-2.0) 04/18/17 06:40 PT 11.4 Seconds (9.9-11.8) 04/16/17 08:25 INR 1.06 (0.93-1.08) 04/16/17 08:25 APTT 29.7 Seconds (23.7-30.8) 04/16/17 08:25 D-Dimer, Quantitative 0.54 mg/L FEU (0-0.50) H 04/16/17 08:25 Sodium 144 mmol/L (132-148) 04/18/17 06:40 Potassium 4.3 mmol/L (3.6-5.0) 04/18/17 06:40 Chloride 103 mmol/L (98-107) 04/18/17 06:40 Carbon Dioxide 31 mmol/L (21-33) 04/18/17 06:40 Anion Gap 14 (10-20) 04/18/17 06:40 BUN 12 mg/dL (7-21) 04/18/17 06:40 Creatinine 1.1 mg/dL (0.5-1.4) 04/18/17 06:40 Est GFR ( Amer) > 60 04/18/17 06:40 Est GFR (Non-Af Amer) > 60 04/18/17 06:40 Random Glucose 105 mg/dL (70-110) 04/18/17 06:40 Calcium 9.2 mg/dL (8.4-10.5) 04/18/17 06:40 Phosphorus 4.6 mg/dL (2.5-4.5) H 04/18/17 06:40 Magnesium 1.9 mg/dL (1.7-2.2) 04/18/17 06:40 Total Bilirubin 0.5 mg/dL (0.2-1.3) 04/18/17 06:40 AST 74 U/L (15-59) H 04/18/17 06:40 ALT 100 U/L (7-56) H 04/18/17 06:40 Alkaline Phosphatase 61 U/L (38-133) 04/18/17 06:40 Troponin I < 0.01 ng/mL 04/17/17 07:00 Total Protein 7.3 g/dL (5.8-8.3) 04/18/17 06:40 Albumin 3.7 g/dL (3.0-4.8) 04/18/17 06:40 Globulin 3.6 gm/dL 04/18/17 06:40 Albumin/Globulin Ratio 1.0 (1.1-1.8) L 04/18/17 06:40 Urine Opiates Screen Positive (NEGATIVE) H 04/16/17 17:45 Urine Methadone Screen Negative (NEGATIVE) 04/16/17 17:45 Ur Barbiturates Screen Negative (NEGATIVE) 04/16/17 17:45 Ur Phencyclidine Scrn Negative (NEGATIVE) 04/16/17 17:45 Ur Amphetamines Screen Negative (NEGATIVE) 04/16/17 17:45 U Benzodiazepines Scrn Negative (NEGATIVE) 04/16/17 17:45 U Oth Cocaine Metabols Negative (NEGATIVE) 04/16/17 17:45 U Cannabinoids Screen Negative (NEGATIVE) 04/16/17 17:45 Hepatitis A IgM Ab Negative (NEGATIVE) 04/16/17 15:30 Hep Bs Antigen Negative (NEGATIVE) 04/16/17 15:30 Hep B Core IgM Ab Negative (NEGATIVE) 04/16/17 15:30 Hepatitis C Antibody Negative (NEGATIVE) 04/16/17 15:30 HIV 1&2 Ag/Ab, 4th Gen Nonreactive (Nonreactive) 04/16/17 15:30 TB Test (QFT) Nil 0.05 IU/mL 04/16/17 15:30 TB Test Mitogen - Nil 5.24 IU/mL 04/16/17 15:30 TB Test TB - Nil <0.00 IU/mL 04/16/17 15:30 TB Test (QFT) Negative (Negative) 04/16/17 15:30 Attending/Attestation - Attestation I have personally seen and examined this patient.: Yes I have fully participated in the care of the patient.: Yes I have reviewed all pertinent clinical information, including history, physical exam and plan: Yes Notes (Text): I have seen and examined the patient at bedside. Agree with the above note with the following additions/ exceptions: Briefly this is 41 year old male with history of IV drug abuse, asthma who presented with left sided pleuritic chest pain and found to have lung abscess. Patient denies any complaints including cough, chest pain, hemoptysis, phlegm production or any other complaints. Patient is not immunocompromised. HIV and hep is negative.TB quantiferon negative. Airborne precautions were stopped today. He was given zosyn and vanco during hospitalization. ID recommended to send the patient home on bactrim and keflex. Continue pulmicort and brovana for asthma. Patient has transaminitis. Hep panel is negative. Recommend Hepatic ultrasound as an outpatient. Patient [facility] to leave [facility] and is requesting to be discharged. He was advised that he needs repeat CT scan of chest in 1 week to see resolution of abscess. Copy of CT scan was given to the patient. Drug abuse counselling provided. Patient was cleared by ID and pulmonary for discharge. Upon discharge patient will follow up with Dr Lashaun Xavier. Follow up with [facility] within [address] Joel Mabry.
--- NOTE | 2017-04-18 16:16 | CP.PCM.PN ---
Subjective - Date & Time of Evaluation Date of Evaluation: 04/18/17 Time of Evaluation: 14:00 - Subjective Subjective: Infectious Disease Follow Up: April 18, 2017 41 yo male with chest pains on the left side stabbing in nature. The patient was woken up by the pain. Imaging studies done show multiple masses in the lung reeves with a left lung cavitary lesion with a fluid level consistent with an abscess. Patient under isolation and being worked up for TB. Cannot rule out malignancy given extent of disease. Samuel cultures and AFB to be sent. Evaluated by Pulmonology. AFB negative times three. Most likely lung abscess with septic emboli. Cultures to date have been negative. Clinically, the patient is very stable with no major complaints. Blood cultures to date have been negative. Clinically patient is not in much distress if any. Objective - Vital Signs/Intake and Output Vital Signs (last 24 hours): Temp Pulse Resp BP Pulse Ox 97.8 F 71 22 128/68 99 04/18/17 08:42 04/18/17 08:42 04/18/17 08:42 04/17/17 23:00 04/18/17 08:42 Intake and Output: 04/18/17 04/18/17 06:59 18:59 Intake Total 720 Balance 720 - Labs Labs: 04/18/17 06:40 04/18/17 06:40 PT 11.4 Seconds (9.9-11.8) 04/16/17 08:25 INR 1.06 (0.93-1.08) 04/16/17 08:25 APTT 29.7 Seconds (23.7-30.8) 04/16/17 08:25 - Constitutional Appears: Non-toxic, No Acute Distress, Chronically Ill - Head Exam Head Exam: ATRAUMATIC, NORMOCEPHALIC - Eye Exam Eye Exam: EOMI, PERRL Pupil Exam: NORMAL ACCOMODATION, PERRL - ENT Exam ENT Exam: Mucous Membranes Moist, Normal External Ear Exam, TM's Normal Bilaterally - Neck Exam Neck Exam: Full ROM, Normal Inspection - Respiratory Exam Respiratory Exam: Chest Wall Tenderness, Clear to Ausculation Bilateral, NORMAL BREATHING PATTERN. absent: Rales, Rhonchi, Wheezes - Cardiovascular Exam Cardiovascular Exam: REGULAR RHYTHM, RRR, +S1, +S2 - GI/Abdominal Exam GI & Abdominal Exam: Soft, Normal Bowel Sounds. absent: Distended, Tenderness - Extremities Exam Extremities Exam: Full ROM, Normal Inspection - Neurological Exam Neurological Exam: Alert, Awake, CN II-XII Intact, Oriented x3 - Psychiatric Exam Psychiatric exam: Normal Affect, Normal Mood - Skin Skin Exam: Intact, Normal Color Assessment and Plan - Assessment and Plan (Free Text) Assessment: 41 yo male with extensive lung pathology with left lower lung cavitary lesion with fluid levels highly suggestive of a lung abscess. Would obtain IR evaluation in addition to Pulmonology evalutation. Samuel cultures. Start on IV antibiotics of Zosyn for now. Most likely abscess and septic emboli. Supportive care. Cultures negative to date. Clinically appears well. Can consider use of Keflex 500 mg TID and Bactrim DS 1 tab BID for a minimum of 14 days if not longer. Patient will need outpatient follow up. Thank you for allowing me to participate in the care of the patient, we will follow with you.
== END 2017-04-18 15:08 | disposition home or self-care (01) | DRG 540 ==
LOC: ED 07:53 → EROBSV 08:29 → OBSVTOIN 11:08 → ERH 11:08 → 5RSO 12:59
PROVIDERS: ADMIT Internal Medicine; ATTEND Hospitalist
DX: J85.2 Abscess of lung without pneumonia (principal); I26.90 Septic pulmonary embolism without acute cor pulmonale; F11.10 Opioid abuse, uncomplicated; J45.20 Mild intermittent asthma, uncomplicated; R74.0 Nonspecific elevation of levels of transaminase and lactic acid dehydrogenase [LDH]; Z79.51 Long term (current) use of inhaled steroids; Z91.010 Allergy to peanuts